=== PATIENT | female | born 1985 | race Caucasian/White ===

== ENCOUNTER 2018-05-24 10:47 | Emergency (ER) | payer SELFPAY ==
[2018-05-24 10:59] VITALS: BP 146/96
--- NOTE | 2018-05-24 11:04 | UC ---
Shoulder Pain HPI - HPI Summary HPI Summary: 32 yo female presents with RIGHT shoulder pain. She tells me that this morning on [facility] she was walking and slipped on the ice. Fell on her right side with her shoulder flexed outward "like a wing". Since that time has had pain in her right shoulder. Pain is worse when trying to lift straight up in the air. Has not taken anything for her discomfort - came directly to . Denies numbness or tingling. - History of Current Complaint Chief Complaint: UCUpperExtremity Stated Complaint: R SHOULDER INJURY Time Seen by Provider: 05/24/18 11:04 Hx Obtained From: Patient Hx Last Menstrual Period: iud Onset/Duration: Sudden Onset Timing: Constant Severity Initially: Moderate Severity Currently: Severe Pain Intensity: 8 Pain Scale Used: 0-10 Numeric - Allergies/Home Medications Allergies/Adverse Reactions: Allergies Allergy/AdvReac Type Severity Reaction Status Date / Time No Known Allergies Allergy Verified 05/24/18 11:00 Home Medications: Home Medications NK [No Home Medications Reported] 05/24/18 [History Confirmed 05/24/18] PMH/Surg Hx/FS Hx/Imm Hx - Additional Past Medical History Additional PMH: None - Surgical History Surgical History: Yes Surgery Procedure, Year, and Place: oral - Family History Known Family History: Positive: None - Social History Occupation: Employed Full-time Lives: With Family Alcohol Use: Occasionally Substance Use Type: None Smoking Status (MU): Current Some Day Smoker Review of Systems All Other Systems Reviewed And Are Negative: Yes Constitutional: Positive: Negative Skin: Positive: Negative Respiratory: Positive: Negative Cardiovascular: Positive: Negative Neurovascular: Positive: Negative Musculoskeletal: Positive: Other: - Right shoulder pain Neurological: Positive: Negative Psychological: Positive: Negative Physical Exam - Summary Physical Exam Summary: GENERAL: NAD. WDWN. No pain distress. SKIN: No rashes, sores, lesions, or open wounds. CHEST: No accessory muscle use. Breathing comfortably and in no distress. CV: Pulses intact radial and ulnar. Cap refill <2seconds MSK: FROM, but pain when flexion>90deg. Strength 5/5. No edema or obvious bony deformities. Positive page-kurt and nerr. Negative apleys, apprehension, empty can, turcios, and yergason tests. NEURO: Alert. Sensations intact hand and all fingers. PSYCH: Age appropriate behavior. Triage Information Reviewed: Yes Vital Signs: Initial Vital Signs Temp 99.1 F 05/24/18 10:55 Pulse 98 05/24/18 10:55 Resp 16 05/24/18 10:55 BP 146/96 05/24/18 10:55 Pulse Ox 99 05/24/18 10:55 Vital Signs Reviewed: Yes Shoulder Course/Dx - Course Course Of Treatment: XR: IMPRESSION: #. Negative radiographic exam of the RIGHT shoulder. Suspect sprain vs RTC involvement. Advised to RICE and take ibuprofen for discomfort. F/u with Orthopedics if her symptoms do not improve in 7-10 days. - Differential Dx/Diagnosis Provider Diagnosis: Sprain of right shoulder Discharge - Sign-Out/Discharge Documenting (check all that apply): Patient Departure All imaging exams completed and their final reports reviewed: Yes - Discharge Plan Condition: Stable Disposition: HOME Patient Education Materials: Shoulder Sprain (ED) Referrals: No Primary Care Phys,NOPCP [Primary Care Provider] - Levar Quijano MD [Medical Doctor] - If Needed Additional Instructions: If you develop a fever, shortness of breath, chest pain, new or worsening symptoms - please call your PCP or go to the ED. Your blood pressure was high at todays visit. Please see your primary provider within 4 weeks for recheck and re-evaluation. 1) Rest and ice your shoulder 2) Practice gentle range of motion exercises as demonstrated in the clinic 3) If your symptoms have not improve in 7-10 days, please call Orthopedics at the number below to schedule a follow up appointment - Billing Disposition and Condition Condition: STABLE Disposition: Home
[2018-05-24] MEDS ORDERED: Ibuprofen TAB* 600 MG PO ONE (11:07)
== END 2018-05-24 12:21 | disposition home or self-care (01) ==
LOC: UCEAST 10:47
DX: S43.401A Unspecified sprain of right shoulder joint, initial encounter (principal); F17.200 Nicotine dependence, unspecified, uncomplicated; W00.0XXA Fall on same level due to ice and snow, initial encounter; Y93.01 Activity, walking, marching and hiking; Y92.9 Unspecified place or not applicable
CPT/HCPCS: 99201; A9270-GY; G0463

== ENCOUNTER 2019-07-04 17:24 | Emergency (ER) | payer OTHER ==
[2019-07-04 17:43] VITALS: BP 177/99
--- NOTE | 2019-07-04 17:54 | UC ---
FLU HPI - HPI Summary HPI Summary: 33-year-old woman comes in with a chief complaint of influenza-like symptoms since yesterday. Said fevers chills and body aches headache. Minimal rhinorrhea no sore throat. She is dry cough but no sputum production. She's taken ibuprofen which does help some with the symptoms. She has also been very fatigued and sleeping a lot. She has been in close contact with several people that have been diagnosed with influenza. - History of Current Complaint Chief Complaint: UCRespiratory Stated Complaint: FLU SYMPTOMS Time Seen by Provider: 07/04/19 17:37 Hx Last Menstrual Period: iud Pain Intensity: 5 - Allergy/Home Medications Allergies/Adverse Reactions: Allergies Allergy/AdvReac Type Severity Reaction Status Date / Time No Known Allergies Allergy Verified 07/04/19 17:43 Home Medications: Home Medications Ibuprofen TAB* [Advil TAB*] 400 mg PO ONCE PRN 07/04/19 [History Confirmed 07/04] Iud* 07/04/19 [History] PMH/Surg Hx/FS Hx/Imm Hx Previously Healthy: Yes - Surgical History Surgical History: Yes Surgery Procedure, Year, and Place: oral - Family History Known Family History: Positive: None - Social History Alcohol Use: Occasionally Alcohol Amount: 2 glasses wine/week Substance Use Type: None Smoking Status (MU): Current Every Day Smoker Type: Cigarettes Amount Used/How Often: 1 pack q3 days Review of Systems All Other Systems Reviewed And Are Negative: Yes Constitutional: Positive: Fever, Chills, Fatigue, Other - see hpi Skin: Positive: Negative Eyes: Positive: Negative ENT: Positive: Nasal Discharge Respiratory: Positive: Cough, Other - see hpi Cardiovascular: Positive: Negative Gastrointestinal: Positive: Negative Motor: Positive: Negative Neurovascular: Positive: Negative Musculoskeletal: Positive: Myalgia Neurological/Mental Status: Positive: Headache Psychological: Positive: Negative Is Patient Immunocompromised?: No Physical Exam Triage Information Reviewed: Yes Appearance: No Pain Distress, Well-Nourished, Ill-Appearing - mild Vital Signs: Initial Vital Signs Temp 98.4 F 07/04/19 17:40 Pulse 113 07/04/19 17:40 Resp 18 07/04/19 17:40 BP 177/99 07/04/19 17:40 Pulse Ox 100 07/04/19 17:40 Vital Signs Reviewed: Yes Eye Exam: Normal Eyes: Positive: Conjunctiva Clear ENT: Positive: Pharynx normal, Nasal congestion, TMs normal Neck: Positive: Supple Respiratory: Positive: Lungs clear, Normal breath sounds, No respiratory distress Cardiovascular: Positive: RRR Musculoskeletal: Positive: Strength Intact, ROM Intact Neurological: Positive: Alert, Muscle Tone Normal Psychological: Positive: Age Appropriate Behavior Skin Exam: Normal Flu Course/Dx - Course Course Of Treatment: Influenza was negative. Patient does have an influenza-like illness and we discussed the treatment of Tamiflu on the side effects at this time patient prefers to be on Tamiflu. Will continue symptomatically treatment get reevaluated if worse or not improving. - Differential Dx/Diagnosis Provider Diagnosis: Influenza-like illness Discharge ED - Sign-Out/Discharge Documenting (check all that apply): Patient Departure All imaging exams completed and their final reports reviewed: No Studies - Discharge Plan Condition: Stable Disposition: HOME Prescriptions: Oseltamivir CAP* [Tamiflu CAP*] 75 mg PO BID #10 cap Patient Education Materials: Influenza (ED) Forms: *Work Release Referrals: [facility] [place] [facility] [Outside] Additional Instructions: FOLLOW UP WITH YOUR DOCTOR IF NOT COMPLETELY IMPROVED. GET REEVALUATED SOONER IF NOT IMPROVED OR WORSE OR ANY QUESTIONS OR CONCERNS. - Billing Disposition and Condition Condition: STABLE Disposition: Home
[2019-07-04 18:03] LABS: Influenza A Molecular Negative (Negative); Influenza B Molecular Negative (Negative)
== END 2019-07-04 18:15 | disposition home or self-care (01) ==
LOC: UCEAST 17:24
DX: R50.9 Fever, unspecified (principal); R51 Headache; R53.83 Other fatigue; R05 Cough; M79.10 Myalgia, unspecified site; F17.210 Nicotine dependence, cigarettes, uncomplicated
CPT/HCPCS: 99212; G0463